=== PATIENT | female | born 1960 | race Caucasian/White ===

== ENCOUNTER 2023-11-18 22:13 | Inpatient (IN) | payer OTHER, SELFPAY ==
[2023-11-18 16:08] VITALS: BP 121/73
[2023-11-18 16:25] LABS: % Basophils 1.3 % (0-2); % Eosinophils 0.8 % (0-6); % Immature Granulocytes 0.2 % (0-0.5); % Lymphocytes 25.6 % (20.5-51.1); % Monocytes 11.5 % (1.7-9.3); % Neutrophils 60.6 % (42.2-75.2); Absolute Basophils 0.1 10^3/uL (0-0.2); Absolute Lymphocytes 1.2 10^3/uL (1.2-3.4); Absolute Monocytes 0.6 10^3/uL (0.1-0.6); Absolute Neutrophils 2.9 10^3/uL (1.4-6.5); Hematocrit 33.7 % (37.0-47.0); Hemoglobin 11.5 g/dL (12.0-16.0); Mean Corp Hgb Conc. 34.1 g/dL (33.0-37.0); Mean Corpuscular Hgb 28.9 pg (27.0-31.0); Mean Corpuscular Volume 84.7 fL (81.0-99.0); Mean Platelet Volume 9.3 fL (7.4-10.4); Nucleated Red Blood Cells % 0 %; Platelet Count 307 10^3/uL (130-400); Red Blood Cell Count 3.98 10^6/uL (4.20-5.40); Red Cell Dist. Width 12.9 % (11.5-14.5); White Blood Cell Count 4.8 10^3/uL (4.8-10.8)
[2023-11-18 16:46] LABS: ALT (SGPT) 14 U/L (0-35); AST (SGOT) 37 U/L (14-36); Alkaline Phosphatase 105 U/L (38-126); Blood Urea Nitrogen 17 mg/dl (7-17); Calcium 9.4 mg/dl (8.4-10.2); Carbon Dioxide 26 mmol/L (22-30); Chloride 106 mmol/L (98-107); Glucose 99 mg/dl (70-99); Potassium 4.2 mmol/L (3.5-5.1); Sodium 137 mmol/L (135-145); Total Bilirubin 0.3 mg/dl (0.2-1.3); Total Protein 7.5 g/dl (6.3-8.2); eGFR > 60.00
[2023-11-18 17:59] VITALS: BMI 18.7
[2023-11-18 18:05] VITALS: BP 118/80
[2023-11-18] MEDS: TYLENOL 650 MG PO (18:48)
[2023-11-18] MEDS: MAALOX 30 PO (18:48)
--- NOTE | 2023-11-18 21:02 | HPS.HSE ---
Family Physician
-
Family Physician: * NONE
Chief Complaint
History of Present Illness
63-year-old female who reports swelling to her left upper extremity yesterday. She was seen at an urgent care and sent to the ER for evaluation
She has past medical history of bipolar disorder, chronic pain, GERD, ADHD, osteopenia, DDD, scoliosis, Hx facial fracture 2008, alcohol abuse
Impression/plan:
Admit to telemetry
DVT left upper extremity
Bipolar disorder
ADHD
Chronic pain
GERD
Other PMH:
osteopenia
DDD
scoliosis
Hx facial fracture 2008
alcohol abuse
Medical History
Past Medical History
Past Medical History: Reports Other
Additional Past Medical History:
bipolar disorder
ADHD
chronic pain
GERD
osteopenia
DDD
scoliosis
Hx facial fracture 2008
alcohol abuse
Past Surgical History: Reports Other
Additional Past Surgical History:
Rhinoplasty
Bunionectomy right hallux
L4-L5 discectomy/fusion/screw placement
Breast augmentation 1992
Allergies / Home Medications
Allergies reflects when Allergies were last updated in [employer].
Home Medications with original date entered in [employer]
Physical Exam
Vital Signs
Vital Signs
Temp Pulse Resp BP Pulse Ox
98.1 F 102 18 118/80 98
11/18/23 16:08 11/18/23 18:05 11/18/23 18:05 11/18/23 18:05 11/18/23 18:05
Laboratory Results
-
11/18/23 16:20
11/18/23 16:20
Laboratory Results
Total Bilirubin 0.3 mg/dl (0.2-1.3) 11/18/23 16:20
AST 37 U/L (14-36) H 11/18/23 16:20
ALT 14 U/L (0-35) 11/18/23 16:20
Alkaline Phosphatase 105 U/L (38-126) 11/18/23 16:20
Impression/Plan
-
IMPRESSION:
PLAN:
--- NOTE | 2023-11-18 21:09 | ED.GENMED ---
History of Present Illness
General
Chief Complaint: Swelling
Source: patient
Exam Limitations: none
Time Seen by Provider: 11/18/23 17:45
Travel History
Have you had any contact with someone who has COVID-19?: No
Do you have any symptoms of coronavirus? Fever > 100 degrees, chills, cough, shortness of breath, sore throat, loss of taste or smell, muscle aches, or headache?: No
History of Present Illness
History of Present Illness:
Swelling to the left arm over 2 to 3 days. Has noted a hard lump the size of an apple in the left axilla for months. No chest pain shortness of breath no fever no trauma no other complaints
Past History
Past History
ED Past Medical History: GERD, Psychiatric (Adderal, ADHD, depression, chronic alcoholic), Other (Anemia ) and Other (chronic back pain)
ED Past Surgical History: Gynecological (Breast implants/exploratory laparotomy ) and Orthopedic (Had back surgery 2007 of my discs were removed and fused.' wrist surgery)
Social History
Tobacco: Former smoker
Alcohol: Daily (Vodka and wine)
Drug: None
Personal:
Living: alone
Employment: Not employed
Family History
Family History: Unable to obtain
Review of Systems
Review of Systems
All Other Systems: Not applicable
Constitutional: Denies fever
Respiratory: Reports no symptoms
Cardiac: Reports no symptoms
Phy Exam
Physical Exam
Physical Exam:
GENERAL: Alert and oriented in no apparent distress
EYE: Orbits normal.
NECK: Supple
CARDIAC: Regular rate and rhythm without any obvious murmurs.
LUNGS: Clear breath sounds,normal
ABDOMEN: Soft, without focal tenderness or distention
NEUROLOGICAL: Alert and oriented , grossly non-focal
SKIN: Warm and dry, diffuse erythema to the left arm.
MUSCULOSKELETAL: Significant left arm swelling. Good distal pulses and color. Old scars in the forearm. Swelling extends up to the shoulder. Axilla with hard tender lymph nodes.
PSYCH: Normal and appropriate interaction.
Scores
Heart Failure Risk
Heart Failure Risk Score: Not Applicable
Course
Orders/Labs/Results
Orders:
Orders
11/18/23 16:20
CMP [Comprehensive Metabolic Panel] Urgent
Complete Blood Count/With Diff Urgent
11/18/23 17:53
CXR2 [CR Chest - 2 Views ] Urgent
Comment:
Reason For Exam: left arm swelling
US Periph Venous UPPER Ext LT Urgent
Comment:
Reason For Exam: swelling
11/18/23 18:36
Acetaminophen [Tylenol] 650 mg PO NOW STA
Mag Hydrox/Al Hydrox/Simeth [Maalox] 30 ml Phenobarb/Hyoscy/Atropine/Scop [] 10 ml PO NOW
11/18/23 18:39
Mag Hydrox/Al Hydrox/Simeth [Maalox] 30 ml .ROUTE .STK-MED ONE
Phenobarb/Hyoscy/Atropine/Scop [] 10 ml .ROUTE .STK-MED ONE
11/18/23 21:05
PTT Urgent
Comment: Obtain baseline before beginning heparin infusion if not already collected
Heparin 4,200 units IV NOW STA
Pharmacy Request to Place See Dose Instructions PO NOW STA
Discontinue all Active Warfarin orders?: Yes
Nursing to Place Non Medication Order As Directed
Physician Order: PTT 6 hours after initial start of Heparin infusion
11/18/23 21:06
CT Neck With Iv Contrast Urgent
Comment:
Reason For Exam: extensive ue dvt
11/18/23 21:08
CT Chest Pe Study Urgent
Comment:
Reason For Exam: Extensive DVT upper extremity
11/18/23 21:15
Heparin 40659 Units/250 ml 25,000 units in 250 ml IV PER PROTOCOL
Weight to be used for heparin protocol in kilograms (kg):: 52.5
Protocol:: DVT/PE
PTT Goal Range to be used:: PTT 73 to 111 seconds
Order type:: Initial
INITIAL Infusion Dose (UNITS/KG/hr) & then follow protocol:: 18 units/kg/hr
Infusion Dose in UNITS/hr & then follow protocol (UNITS/hr):: 900
INFUSION RATE in mL/hr & then follow protocol (mL/hr):: 9
For DVT/PE algorithm, re-bolus for low PTT?: Yes
PTT less than or equal to 64 seconds:: Re-bolus 80 units/kg (max 10,000units). Increase by 200 units/hr
(+ 2mL/hr)
PTT 64.1 to 72.9 seconds:: Re-bolus 40 units/kg (max 5,000 units). Increase by 100 units/hr
(+ 1mL/hr)
PTT 73 to 111 seconds:: Target Range. No change in rate.
PTT 111.1 to 130.9 seconds:: Decrease rate by 100 units/hr (- 1 mL/hr)
PTT 131 to 199.9 seconds:: HOLD for 1 hr. Then decrease by 200 units/hr (- 2mL/hr)
PTT greater than or equal to 200 seconds:: HOLD for 2 hrs & Notify Provider. Then decrease by 200 units/hr
(- 2mL/hr)
Lab follow-up:: Each change, PTT q6h until 2 consecutive are therapeutic. Then
PTT daily.
11/18/23 22:[address] See Dose Instructions IV DIRECTED
Abnormal Lab Results
11/18/23
16:20
RBC 3.98 L 10^6/uL
(4.20-5.40)
Hgb 11.5 L g/dL
(12.0-16.0)
Hct 33.7 L %
(37.0-47.0)
Monocytes % 11.5 H %
(1.7-9.3)
AST 37 H U/L
(14-36)
11/18/23 16:20
11/18/23 16:20
Vital Signs
Initial and Last Documented VS:
Initial Vital Signs
Temp Pulse Resp BP Pulse Ox
98.1 F 108 18 121/73 98
11/18/23 16:08 11/18/23 16:08 11/18/23 16:08 11/18/23 16:08 11/18/23 16:08
Last Documented Vital Signs
Temp Pulse Resp BP Pulse Ox
98.1 F 102 18 118/80 98
11/18/23 16:08 11/18/23 18:05 11/18/23 18:05 11/18/23 18:05 11/18/23 18:05
MDM/Problems Addressed
Differential Diagnosis Includes:
Extensive DVT. Anticoagulation. CT scan ordered to evaluate progression into the chest and neck. Discussed with hospitalist
*Radiology
Radiology exam reviewed: radiology read reviewed (Extensive DVT left upper extremity)
*Pulse Oximetry
Patient hypoxic: no
*Critical Care Note
Total Time (30-74mins, 75-104mins- exclusive of procedures): Not Applicable
Data Reviewed
Review of Other/Old Records Reveals: Labs and Testing
Update Note
Update Note:
Extensive upper extremity DVT
ED Attending Note
-
Portions of this chart may have been created with voice recognition software.� Occasional wrong word or��sound alike� substitutions may have occurred due to the inherent limitations of voice recognition software.
Discharge Plan
Departure
Patient Disposition: Admit
Date of Disposition: 11/18/23
Time of Disposition: 21:09
Presentation/result/management discussed w/ accepting MD/DO: Hospitalist
Discharge Problem:
Extensive DVT left upper extremity
Prescriptions:
No Action
No Current Medications
0
Referrals:
NONE,* [Family Provider] -
Interventions
Interventions:
*Risk Screen - Suicide Last Done: 11/18/23 18:00
*General Assessment Last Done: 11/18/23 16:08
*Neglect/Abuse Screening Last Done: 11/18/23 18:00
ED- Fall Risk Assessment Last Done: 11/18/23 18:08
*ED COVID-19 Vaccine History Last Done: 11/18/23 16:08
ED- Cardiac Assessment Last Done: 11/18/23 18:08
ED- Pulmonary Assessment Last Done: 11/18/23 18:08
ED-Skin Assessment Last Done: 11/18/23 18:08
--- NOTE | 2023-11-18 21:36 | HPS.HSE ---
Addendum entered and electronically signed by Rosendo Duncan MD 11/18/23 22:05:
05/13/20 [facility] Digi Moo Scr Mammo W/cad
- No radiographic evidence of malignancy.
- Routine mammographic follow-up is recommended in one year.
Addendum entered and electronically signed by Rosendo Duncan MD 11/18/23 22:02:
I saw and examined the patient.
The DULITE MACHINE BLUER or PA's note was reviewed and I agree with the note.
Comment:
HPI
63F current smoker, HX b/l saline breast implant, last mamaogram was in 2007 , FHX of breast CA pw acute Lt UEx extensive swelling. Minimal discomfort but denied pain. She noted Lt axillary lump for 1 yrs.
Denied wt loss.
HX chr ambulatory dysfunction, use cane or walker.
HX Suboxone dependent chr LBP.
PHX
Chr back pain
GERD
chr ambulatory dysfunction
Former ETOH use disorder
Depression, ADHD
Breast implants
L4-5 discectomy , fusion and screws
Surgery for deviated nasal septum
Lt wrist surgery
SHX
Tobacco: Current smoker
Alcohol: Former ETOH use disorder - quit 3 yrs ago
Drug: None
Personal:
Living: alone
FHX : of breast CA
Reviewed VS: tachycardic @ low 100 BP 120/70 POx 98 on RA
PE
Gen: Not toxic, NAD , conversant
HEENT: anicteric
Neck: Firm lumpy nodes at Lt supraclavicular fossa, Lt axilla
Breast exam in the presence of DULITE MACHINE BLUER: Firm Lt breast , less mobile saline implant
Lungs: CTA
Cor: RRR S1 S2
Abdomen: soft NT NG NRT
ROLLED GLASS CROSSCUTTER: AAO3, NFND
MS: severe Lx kyphosis and deformity
Psych: Anxious
Data
WCC 4.8
Hgb 11.5
Unremarkable CMP
CXR: No convincing acute cardiopulmonary process. Soft tissue prominence in the left axillary region could reflect lymphadenopathy.
Lt UEx US: prelim reports extensive DVT. Enlaged Lt axillary LNs
Last hospitalist admission: Nil
ASSESSMENT & PLAN
Acute extensive occlusive DVT of Lt UEx - likely provoked
Lt supraclavicular and Lt axillary painless firm lumps suspect metastaic LAD DDX: Undiagnosed metastatic Breast CA
last mammogram was in 2007
FHx POS for Breast CA, Ovarian CA
- Await CTA of chest and CT Neck to eval extent of DVT and eval for any tumor
- Heparin gtt
- IR and Oncology consult
Chr back pain on chr Suboxone
chr ambulatory dysfunction: Use crutch , cane
- cont all OP pain Meds
Current smoker
Former ETOH use disorder - report sober for last 3yrs , confimed by daughter
- suggest cessation of smoking
DVT Px: on Heparin gtt
Full code
IP MS
Addendum entered and electronically signed by PAUL Reinoso 11/18/23 21:58:
Change to med rec
Suboxone 8/2mg sl tid not 8mg daily per PDMP
Original Note:
Family Physician
-
Family Physician: * NONE
Chief Complaint
-
Left upper extremity swelling, pain
History of Present Illness
63-year-old female who states she started with a left axilla lump approximately 1 year ago pea size which has expanded over the past year. She reports 2 days ago with swelling to her entire left upper extremity to lower hand that is painful and
tender. She reports she was at her sister's today when family noticed and advised her to come to the ER. She does have past medical history of bilateral breast augmentation with saline implants placed in front of the muscles in 1991. She
reports her last mammogram and pelvic ultrasound in 2007. She reports she stopped doing exams as she only wanted to think positive and did not want to wheel herself cancer. She has strong family history mother and sister of breast cancer,
paternal half sister of ovarian cancer paternal aunt of ovarian cancer. She is past medical history of chronic pain on chronic Suboxone, ADHD, bipolar disorder, anxiety, nicotine abuse, former alcohol abuse quit 13 years ago, cachexia,
GERD.
Medical History
Past Medical History
Past Medical History: Reports Other
Additional Past Medical History:
chronic pain on chronic Suboxone
ADHD
bipolar disorder
anxiety
nicotine abuse
former alcohol abuse quit 13 years ago
cachexia
GERD
Scoliosis secondary to thoracic kyphosis
Past Surgical History: Reports Other (Bilateral breast augmentation saline implants 1992,)
Additional Past Surgical History:
Bilateral breast implants 1992 saline
L4-L5 discectomy with plates, screws
Left wrist surgery x 3
Deviated septum repair
Exploratory lap for infertility
Social History
Tobacco: Smoker (1 pack/day)
Alcohol: Former (Stopped 13 years ago)
Drug: None
Personal: Single
Living: Alone
Employment: Disabled
Family History
Family History: Other (Mother and sister of breast cancer, paternal half sister of ovarian cancer, paternal aunt of ovarian cancer)
Allergies / Home Medications
Allergies reflects when Allergies were last updated in [employer].
Home Medications with original date entered in [employer]
Allergy/Medication List:
Allergies
Allergy/AdvReac Type Severity Reaction Status Date / Time
SSRI Allergy Unknown Uncoded 11/18/23 16:12
Home Medications
Suboxone 8 mg PO DAILY 11/18/23
dextroamphetamine-amphetamine ER 30 mg 24hr capsule,extend release (Adderall XR) 30 mg PO BID 11/18/23
lorazepam 0.5 mg tablet (Ativan) 0.5 mg PO DAILY PRN anxiety 11/18/23
pantoprazole 40 mg tablet,delayed release (Protonix) 40 mg PO DAILY 11/18/23
Review of Systems
-
History Source: Patient and Family (Daughter at bedside)
A 12 point ROS was completed and negative except as noted: Yes
Constitutional: Denies Fever, Weight Gain, Weight Loss or Fatigue
EENT: Denies Sore Throat or Runny Nose
Respiratory: Denies Cough or Trouble Breathing
Cardiac: Denies Chest Pain, Diaphoresis, Palpitations or Syncope
Abdomen/GI: Denies Abdominal Pain, Nausea, Vomiting, Diarrhea, Constipated or Bloody Stools
: Denies Dysuria
Musculoskeletal: Reports Edema (Entire left upper extremity until left axilla with erythema lymphadenopathy axilla supraclavicular, anterior cervical chain); Denies Joint Pain
Skin: Denies Itching or Rash
Neurological: Denies Dizzy, Headache or Weakness
Endocrine: Reports No Symptoms
Hematologic/Lymphatic: Reports No Symptoms
Psych: Reports Anxiety
Physical Exam
Vital Signs
Vital Signs
Temp Pulse Resp BP Pulse Ox
98.1 F 102 18 118/80 98
11/18/23 16:08 11/18/23 18:05 11/18/23 18:05 11/18/23 18:05 11/18/23 18:05
Physical Exam
Respiratory: Clear; No Wheezes, Rales or Rhonchi
Cardiac: S1/S2 and Regular Rhythm; No Murmur, Rub, Gallop or Peripheral Edema
Breast: Other (Bilateral breast implants in front of breast tissue hardened with stone pebble-like borders, left breast with swelling into axilla and multiple hard masses palpated)
GI: Soft, Non Tender, Non Distended, Normal Bowel Sounds and No Hepatosplenomegaly
Rectal: Deferred by Provider
Genito-urinary: Deferred by me
Musculoskeletal: No Clubbing, No Cyanosis and Edema, Left Upper Extremity (Entire left upper extremity until left axilla with erythema lymphadenopathy axilla supraclavicular, anterior cervical chain); No Edema, Right Upper Extremity, Edema, Left
Lower Extremity or Edema, Right Lower Extremity
Skin: Warm and Dry; No Rash
Neuro: AO x 3, No Motor Deficits, Nonfocal/grossly intact, Cranial Nerves Intact and No Sensory Deficits; No Slurred Speech, Facial Droop or Tremors
Psych: Anxious
Laboratory Results
-
11/18/23 16:20
11/18/23 16:20
Laboratory Results
Total Bilirubin 0.3 mg/dl (0.2-1.3) 11/18/23 16:20
AST 37 U/L (14-36) H 11/18/23 16:20
ALT 14 U/L (0-35) 11/18/23 16:20
Alkaline Phosphatase 105 U/L (38-126) 11/18/23 16:20
Impression/Plan
-
Impression/plan:
Admit to MedSurg
#Left upper extremity DVT with adenopathy concerning for underlying Breast cancer
-Check CT PE study/CT neck
-Iv heparin GTT
-consult IR
- consult ONC
#Chronic pain on chronic Suboxone
-Continue Suboxone 8 mg daily
#ADHD
Patient on Adderall 30 mg twice daily
#Bipolar disorder
#Anxiety
-Continue Ativan 0.5 mg daily as needed
#Nicotine abuse
1 pack/day
-Cessation advised
-Nicotine patch 21 mg
#Former alcohol abuse quit 13 years ago
#Cachexia 2/2 malnutrition�BMI 18.7 kg
-Consult dietary
#GERD
-Continue Protonix 40 mg daily
#Scoliosis secondary to thoracic kyphosis
#Chronic ambulatory dysfunction secondary to above
Patient uses cane to walk
FUll code
[2023-11-18 21:50] VITALS: BP 128/85
[2023-11-18] MEDS: HEPARIN 4200 UNITS IV (21:51)
[2023-11-18 22:11] LABS: APTT 33.5 Sec (23.4-35.0)
[2023-11-18] MEDS: HEPARIN 25000 UNITS/250 ML IV (22:23)
[2023-11-19] VITALS: BP 97/65
[2023-11-19 00:02] VITALS: BP 97/65
[2023-11-19 00:15] VITALS: BP 111/67
[2023-11-19 00:24] VITALS: BMI 17.5
--- NOTE | 2023-11-19 00:30 | W.PN.UPDATE ---
Update Note
Progress Note Update
CT neck and CTA chest with IV contrast
- Extensive LAD/ mass lesions Lt SCL, axiliary, upper chest measuring up to 13 cm concerning for neoplastic process.
- Lobulated mass at Lt breast.
- No central and lobar PE.
[2023-11-19] MEDS: SUBUTEX 8 MG SL ×4 (00:51→21:32)
--- NOTE | 2023-11-19 01:50 | PTCARENOTE ---
Pt. arrived from ED via stretcher. Pt. ambulated into room 337-2 with staff assistance and one crutch. Pt. reports that she only uses one crutch at home to ambulate. Pt. AAOx3, anxious, fast speech. Heparin gtt running @ 9 mL/hr when pt. arrived to
floor. Pt. able to answer all questions appropriately. Oriented to unit. Call wick within reach. Plan of care ongoing.
[2023-11-19 05:21] LABS: % Basophils 0.9 % (0-2); % Eosinophils 3.5 % (0-6); % Immature Granulocytes 0.3 % (0-0.5); % Lymphocytes 44.5 % (20.5-51.1); % Neutrophils 35.8 % (42.2-75.2); Absolute Eosinophils 0.1 10^3/uL (0-0.7); Absolute Lymphocytes 1.5 10^3/uL (1.2-3.4); Absolute Monocytes 0.5 10^3/uL (0.1-0.6); Absolute Neutrophils 1.2 10^3/uL (1.4-6.5); Hematocrit 33.1 % (37.0-47.0); Hemoglobin 11.4 g/dL (12.0-16.0); Mean Corp Hgb Conc. 34.4 g/dL (33.0-37.0); Mean Corpuscular Hgb 28.9 pg (27.0-31.0); Mean Platelet Volume 9.4 fL (7.4-10.4); Nucleated Red Blood Cells % 0 %; Platelet Count 232 10^3/uL (130-400); Red Blood Cell Count 3.94 10^6/uL (4.20-5.40); Red Cell Dist. Width 12.8 % (11.5-14.5); White Blood Cell Count 3.5 10^3/uL (4.8-10.8)
[2023-11-19 05:36] LABS: APTT 128.1 Sec (23.4-35.0)
[2023-11-19 05:43] LABS: ALT (SGPT) 12 U/L (0-35); AST (SGOT) 35 U/L (14-36); Albumin 3.4 g/dl (3.5-5.0); Alkaline Phosphatase 101 U/L (38-126); Blood Urea Nitrogen 18 mg/dl (7-17); Calcium 8.8 mg/dl (8.4-10.2); Carbon Dioxide 25 mmol/L (22-30); Chloride 106 mmol/L (98-107); Estimated Creatinine Clearance 62 ml/min; Glucose 88 mg/dl (70-99); Potassium 4.6 mmol/L (3.5-5.1); Sodium 135 mmol/L (135-145); Total Bilirubin 0.5 mg/dl (0.2-1.3); Total Protein 6.8 g/dl (6.3-8.2); eGFR > 60.00
[2023-11-19 07:00] VITALS: BP 119/65
[2023-11-19] MEDS: NICODERM TRANSDERMAL 21 MG TRANSDERM (08:50)
[2023-11-19] MEDS: PROTONIX 40 MG PO (08:51)
--- NOTE | 2023-11-19 12:09 | W.PN.HOSP.TC ---
Addendum entered and electronically signed by Jesus Hawley MD 11/19/23 14:24:
Discussed with IR and they will be able to do biopsy tomorrow
Original Note:
Today's Communication/Plan
-
Monitor vitals
See plan
Continue with heparin drip
Awaiting oncology to see
IR consulted
Daughter updated over the phone
Assessment / Plan
Assessment / Plan
General: No acute distress
HEENT: anicteric
Respiratory: Clear; No Wheezes
Cardiac: S1/S2 and Regular Rhythm
Breast: Other (Bilateral breast implants in front of breast tissue hardened with stone pebble-like borders)
GI: Soft, Non Tender, Non Distended
Musculoskeletal: Edema, Left Upper Extremity edema
Neuro: AO x 3, No Motor Deficits
Acute Left upper extremity DVT with adenopathy concerning for underlying Breast cancer
-CT chest without pulmonary embolus, extensive adenopathy in the left axilla/subclavian region versus anterolateral chest wall mass versus intramuscular lesion. Mild emphysematous disease
Strong family history of breast and ovarian cancer
Neck CT with extensive lymphadenopathy
-cw Iv heparin GTT
-consulted IR
- consulted ONC; if feels need to involve dr Navarro then will consult
Mammogram 05/13/20: No radiographic evidence of malignancy
#Chronic pain on chronic Suboxone
-Continue Suboxone 8 mg daily
#ADHD
Patient on Adderall 30 mg twice daily
#Bipolar disorder
#Anxiety
-Continue Ativan 0.5 mg daily as needed
#Nicotine abuse
1 pack/day
-Cessation advised
-Nicotine patch 21 mg
#Former alcohol abuse quit 13 years ago
#Cachexia 2/2 suspected severe protein calorie malnutrition�BMI 18.7 kg
-Consult dietary
�#GERD
-Continue Protonix 40 mg daily
#Scoliosis secondary to thoracic kyphosis
#Chronic ambulatory dysfunction secondary to above
Patient uses cane to walk
FUll code
Anticipated Discharge: > 48 hours
Subjective/Interval History
-
Date of Service: November 19, 2023
denies pain
Objective Data
-
Labs:
Laboratory Results
11/19/23 11/19/23
05:09 12:09
WBC 3.5 L
Hgb 11.4 L
Hct 33.1 L
Plt Count 232 D
APTT 128.1 H Pending
Sodium 135
Potassium 4.6
Chloride 106
Carbon Dioxide 25
BUN 18 H
Creatinine 0.7
Glucose 88
Calcium 8.8
Total Bilirubin 0.5
AST 35
ALT 12
Alkaline Phosphatase 101
Vital Signs:
Vital Signs
Temp Pulse Resp BP Pulse Ox
97.6 F 74 18 119/65 97
11/19/23 07:00 11/19/23 07:00 11/19/23 07:00 11/19/23 07:00 11/19/23 07:00
I&O
11/18/23 11/19/23 11/20/23
06:59 06:59 06:59
Intake Total 360 / 360
Balance 360 / 360
[2023-11-19 12:30] LABS: APTT 82.1 Sec (23.4-35.0)
--- NOTE | 2023-11-19 14:42 | CM ---
Reviewed chart, met with patient and her daughter who was at bedside to obtain information for assessment. Patient stated that she lives alone in a multi-story house with a first floor set up. Patient stated that she is making her shower a walk in
as well.
Patient described herself as independent with her ADLs, self care and uses a cane to assist with her ambulation. Her daughter does help her sometimes with her personal care if she is having a bad day as she has a lot of orthopedic concerns. She
stated that she keeps a cell phone with her at all times in the event that she falls.
Her daughter assists with the burning plant operator, cooking, cleaning and laundry.
She has never had VN services nor has she been to a SNF.
Patient has a prescription plan and uses [facility] [address] for all of her medications.
Patient stated that she feels she will have no needs at time of discharge as her daughter is with her an acts as a cg for whatever she needs. She was more concerned about the course of her hospitalization.
Plan: Case management will continue to follow and assist with discharge planning. Patient will return home with the support of her daughter.
[2023-11-19 15:00] VITALS: BP 118/76
[2023-11-19 15:32] VITALS: BMI 17.5
--- NOTE | 2023-11-19 15:54 | CON.ONC ---
Impression
Impression
clinically locally advanced adenopathy lymphoma versus breast carcinoma
Plan
Plan
with indolent lymphoma as well as a low-grade hormone receptor positive breast carcinoma would present with similar findings; maintaining IV heparin for occlusive PTE therapy was transitioned to NOAC following biopsy of choice by IR for multiple
lesions easily palpable. We'll follow-up
Patient History
History of Present Illness
63-year-old white female we are asked to evaluate for an progressive left upper extremity swelling with a 2 year plus history of palpable breast mass/supraclavicular adenopathy. The patient noticed that she does not see her primary care physician
on a regular basis. She noted the abnormalities described progressing but it has been in the last week when she was unable to close her hand without pain due to tightness from edema that she opted to come to the emergency room for evaluation. She
was asking to be discharged today however encouraged her to stay in the hospital to continue with IV heparin therapy for biopsy of the lesions noted to formulate a plan of treatment on the outpatient basis.
Past-Medical/Surgical History
GERD; depression; DHD; chronic low back pain; bilateral breast implants; herniated disc repair
Patient Medication
Medication Instructions Recorded Confirmed Last Taken Type
buprenorphine 8 mg-naloxone 2 mg 1 film sublingual TID substance 11/18/23 11/18/23 11/18/23 09:00 History
sublingual film (Suboxone) use disorder
dextroamphetamine-amphetamine ER 30 mg PO BID ADHD 11/18/23 11/18/23 Unknown History
30 mg 24hr capsule,extend release
(Adderall XR)
lorazepam 0.5 mg tablet (Ativan) 0.5 mg PO DAILY PRN anxiety 11/18/23 11/18/23 Unknown History
pantoprazole 40 mg tablet,delayed 40 mg PO DAILY Gastrointestinal 11/18/23 11/18/23 Unknown History
release (Protonix) Issue
Active Medications
Generic Name Dose Route Start Last Admin
Trade Name Freq PRN Reason Stop Dose Admin
Acetaminophen 650 mg 11/19/23 00:14
Acetaminophen 325 Mg Tablet PO 12/17/23 00:13
Q4HPRN PRN
mild pain/ROTHMAN/temp> 100.4F
Buprenorphine 8 mg 11/19/23 00:14 11/19/23 08:51
Buprenorphine 8 Mg Sl Tablet SL 12/17/23 00:13 8 mg
TID ESTEFANÍA Administration
Heparin Sodium 4,200 units 11/18/23 22:09
Heparin 80 Units/Kg Rebolus-Do Not Discard IV 12/16/23 22:08
PRN PRN
PTT < OR = 64 seconds
Heparin Sodium 2,100 units 11/18/23 22:10
Heparin 40 Units/Kg Rebolus-Do Not Discard IV 12/16/23 22:09
PRN PRN
PTT = 64.1 to 72.9 seconds
Heparin Sodium 25,000 units in 250 mls @ 0 mls/hr 11/18/23 21:15 11/18/23 22:23
Heparin 17369 Units/250 Ml IV 250 mls
PER PROTOCOL ESTEFANÍA Administration
Protocol
Per Protocol
Lorazepam 0.5 mg 11/19/23 00:14
Lorazepam 0.5 Mg Tablet PO 12/17/23 00:13
DAILY PRN
anxiety
Nicotine 21 mg 11/19/23 08:00 11/19/23 08:50
Nicotine 21 Mg Patch TRANSDERM 12/17/23 07:59 21 mg
DAILY ESTEFANÍA Administration
Dextroamphetamine- 0 mg 11/19/23 08:00
Amphetamine [ PO 12/17/23 07:59
Adderall Xr] 30 Mg BID ESTEFANÍA
Capsule,Ext Po Bid
Pantoprazole Sodium 40 mg 11/19/23 08:00 11/19/23 08:51
Pantoprazole 40 Mg Delayed Release Tablet PO 12/17/23 07:59 40 mg
DAILY ESTEFANÍA Administration
Sodium Chloride 0 flush 11/18/23 23:00
Sodium Chloride 0.9% (Flush) Syringe IV 12/16/23 22:59
PER PROTOCOL ESTEFANÍA
Review of Systems
-
History Source: Patient
All Other Systems: Reviewed and Negative (other than as per HPI)
Physical Exam
-
General: Cachetic
HEENT: Moist Mucous Membranes
Cardiology: Normal Sinus Rhythm
Pulmonary: Clear
GI: Soft and Normal Bowel Sounds
Musculoskeletal: Edema. Left Upper Extrem
Hematologic / Lymphatic: Lymphadenopathy (consistent with lymphadenopathy of the subpectoral left chest wall with left axillary adenopathy as well as multiple supraclavicular and lower cervical lymph nodes)
Labs
Lab Results
WBC 3.5 10^3/uL (4.8-10.8) L 11/19/23 05:09
RBC 3.94 10^6/uL (4.20-5.40) L 11/19/23 05:09
Hgb 11.4 g/dL (12.0-16.0) L 11/19/23 05:09
Hct 33.1 % (37.0-47.0) L 11/19/23 05:09
MCV 84.0 fL (81.0-99.0) 11/19/23 05:09
MCH 28.9 pg (27.0-31.0) 11/19/23 05:09
MCHC 34.4 g/dL (33.0-37.0) 11/19/23 05:09
RDW 12.8 % (11.5-14.5) 11/19/23 05:09
Plt Count 232 10^3/uL (130-400) D 11/19/23 05:09
MPV 9.4 fL (7.4-10.4) 11/19/23 05:09
Abs Immat Gran (auto) 0.0 10^3/uL (0-0.05) 11/19/23 05:09
Absolute Neuts (auto) 1.2 10^3/uL (1.4-6.5) L 11/19/23 05:09
Absolute Lymphs (auto) 1.5 10^3/uL (1.2-3.4) 11/19/23 05:09
Absolute Monos (auto) 0.5 10^3/uL (0.1-0.6) 11/19/23 05:09
Absolute Eos (auto) 0.1 10^3/uL (0-0.7) 11/19/23 05:09
Absolute Basos (auto) 0.0 10^3/uL (0-0.2) 11/19/23 05:09
Immature Gran % 0.3 % (0-0.5) 11/19/23 05:09
Neutrophils % 35.8 % (42.2-75.2) L 11/19/23 05:09
Lymphocytes % 44.5 % (20.5-51.1) 11/19/23 05:09
Monocytes % 15.0 % (1.7-9.3) H 11/19/23 05:09
Eosinophils % 3.5 % (0-6) 11/19/23 05:09
Basophils % 0.9 % (0-2) 11/19/23 05:09
Creatinine 0.7 mg/dL (0.6-1.0) 11/19/23 05:09
Vital Signs
Vital Signs
Temp Pulse Resp BP Pulse Ox
98.2 F 76 18 118/76 98
11/19/23 15:00 11/19/23 15:00 11/19/23 15:00 11/19/23 15:00 11/19/23 15:00
[2023-11-19 19:24] LABS: APTT 42.9 Sec (23.4-35.0)
[2023-11-19] MEDS: HEPARIN 4200 UNITS IV (19:56)
[2023-11-19] MEDS: HEPARIN 25000 UNITS/250 ML IV (19:56)
[2023-11-20] VITALS (13 sets, daily range): BP systolic 86–135; BP diastolic 71–93
[2023-11-20 01:54] LABS: % Basophils 1.4 % (0-2); % Eosinophils 2.4 % (0-6); % Immature Granulocytes 0.2 % (0-0.5); % Lymphocytes 32.9 % (20.5-51.1); % Monocytes 11.6 % (1.7-9.3); % Neutrophils 51.5 % (42.2-75.2); Absolute Basophils 0.1 10^3/uL (0-0.2); Absolute Eosinophils 0.1 10^3/uL (0-0.7); Absolute Lymphocytes 1.6 10^3/uL (1.2-3.4); Absolute Monocytes 0.6 10^3/uL (0.1-0.6); Absolute Neutrophils 2.6 10^3/uL (1.4-6.5); Hematocrit 34.9 % (37.0-47.0); Mean Corp Hgb Conc. 34.4 g/dL (33.0-37.0); Mean Corpuscular Volume 84.3 fL (81.0-99.0); Mean Platelet Volume 10.9 fL (7.4-10.4); Nucleated Red Blood Cells % 0 %; Platelet Count 219 10^3/uL (130-400); Red Blood Cell Count 4.14 10^6/uL (4.20-5.40); Red Cell Dist. Width 12.7 % (11.5-14.5)
[2023-11-20 02:21] LABS: APTT 190.6 Sec (23.4-35.0)
[2023-11-20 02:26] LABS: ALT (SGPT) 13 U/L (0-35); AST (SGOT) 33 U/L (14-36); Albumin 3.6 g/dl (3.5-5.0); Alkaline Phosphatase 104 U/L (38-126); Blood Urea Nitrogen 16 mg/dl (7-17); Calcium 8.6 mg/dl (8.4-10.2); Carbon Dioxide 27 mmol/L (22-30); Chloride 105 mmol/L (98-107); Estimated Creatinine Clearance 73 ml/min; Glucose 94 mg/dl (70-99); Potassium 4.2 mmol/L (3.5-5.1); Sodium 135 mmol/L (135-145); Total Bilirubin 0.5 mg/dl (0.2-1.3); eGFR > 60.00
[2023-11-20] MEDS: PROTONIX 40 MG PO (08:45)
[2023-11-20] MEDS: SUBUTEX 8 MG SL ×3 (08:45→22:00)
[2023-11-20] MEDS: NICODERM TRANSDERMAL 21 MG TRANSDERM (08:48)
--- NOTE | 2023-11-20 09:35 | W.PN.ONC2 ---
Today's Communication / Plan
-
- LN bx with IR today.
- transition to DOAC after bx.
- outpt oncology follow up for path review, ongoing management.
Impression
Impression
clinically locally advanced adenopathy lymphoma versus breast carcinoma
Plan
Plan
1. Left subclavian, Axillary, supraclavicular adenopathy: DDX lymphoma vs. breast primary highest on differential. IR bx scheduled for today. will arrange close oncology follow-up to review path results and for ongoing management of suspected
malignancy.
2. LUE DVT: maintaining IV heparin for occlusive LUE DVT. plan to transition to DOAC after IR bx today.
Subjective/Objective
Chief Complaint
adenopathy, LUE DVT
Subjective
pt has no new complaints today. She notes improvement in LUE swelling. Denies fevers, chills.
Vital Signs:
Vital Signs
Temp Pulse Resp BP Pulse Ox
97.5 F 85 16 124/77 99
11/20/23 07:00 11/20/23 07:00 11/20/23 07:00 11/20/23 07:00 11/20/23 07:00
Lab Results:
Laboratory Data
WBC 5.0 10^3/uL (4.8-10.8) 11/20/23 01:40
Hgb 12.0 g/dL (12.0-16.0) 11/20/23 01:40
Plt Count 219 10^3/uL (130-400) 11/20/23 01:40
APTT 190.6 Sec (23.4-35.0) H* 11/20/23 01:40
eGFR > 60.00 11/20/23 01:40
Physical Exam
HEENT: No Jaundice
Pulmonary: Clear
Extremities: Edema (LUE. palpable left axillary adenopathy, tender to palpation. )
Neuro: Non Focal
Review of Systems
Review of Systems
Constitutional: Denies Fever
Respiratory: Denies Dyspnea
Cardiovascular: Denies Chest Pain
Neurological: Denies Headache
Hem/Lymphatic: Reports Swollen Glands; Denies Night Sweats
[2023-11-20 09:38] LABS: APTT 54.8 Sec (23.4-35.0)
--- NOTE | 2023-11-20 10:32 | W.PN.HOSP.TC ---
Today's Communication/Plan
-
see bold
Assessment / Plan
Assessment / Plan
Gen: NAD, AAOx3, appears chronically ill and malnourished.
Eyes: EOMI, PERRLA, no scleral icterus.
Neck: supple.
CV: RRR, +S1/S2, no m/r/g.
Resp: CTAB, no rales, wheezes, or rhonchi.
Abd: +BS, soft, NT, ND
Skin: No rashes. 3+ LUE edema
Neuro: CN 2-12 intact, non-focal.
Psych: Normal mood and affect.
Acute Left upper extremity DVT with adenopathy concerning for underlying Breast cancer
-CT chest without pulmonary embolus, extensive adenopathy in the left axilla/subclavian region versus anterolateral chest wall mass versus intramuscular lesion. Mild emphysematous disease
Strong family history of breast and ovarian cancer
Neck CT with extensive lymphadenopathy
-cont heparin gtt
-IR to Bx, ONC following
Mammogram 05/13/20: No radiographic evidence of malignancy
#Chronic pain on chronic Suboxone
-Continue Suboxone 8 mg daily
#ADHD
Patient on Adderall 30 mg twice daily
#Bipolar disorder
#Anxiety
-Continue Ativan 0.5 mg daily as needed
#Nicotine abuse
1 pack/day
-Cessation advised
-Nicotine patch 21 mg
#Former alcohol abuse quit 13 years ago
#Cachexia 2/2 suspected severe protein calorie malnutrition�BMI 18.7 kg
-Consult dietary
�#GERD
-Continue Protonix 40 mg daily
#Scoliosis secondary to thoracic kyphosis
#Chronic ambulatory dysfunction secondary to above
Patient uses cane to walk
FULL/Heparin
Anticipated Discharge: Within 24 hours
Subjective/Interval History
-
Date of Service: November 20, 2023
Denies CP/SOB.
Objective Data
-
Labs:
Laboratory Results
11/20/23 11/20/23
01:40 09:16
WBC 5.0
Hgb 12.0
Hct 34.9 L
Plt Count 219
APTT 190.6 H* 54.8 H
Sodium 135
Potassium 4.2
Chloride 105
Carbon Dioxide 27
BUN 16
Creatinine 0.6
Glucose 94
Calcium 8.6
Total Bilirubin 0.5
AST 33
ALT 13
Alkaline Phosphatase 104
Vital Signs:
Vital Signs
Temp Pulse Resp BP Pulse Ox
97.5 F 85 16 124/77 99
11/20/23 07:00 11/20/23 07:00 11/20/23 07:00 11/20/23 07:00 11/20/23 07:00
I&O
11/19/23 11/20/23 11/21/23
06:59 06:59 06:59
Intake Total 1500 / 1500
Balance 1500 / 1500
[2023-11-21 01:32] LABS: % Basophils 1.1 % (0-2); % Eosinophils 2.9 % (0-6); % Immature Granulocytes 0.2 % (0-0.5); % Lymphocytes 30.2 % (20.5-51.1); % Monocytes 15.6 % (1.7-9.3); Absolute Basophils 0.1 10^3/uL (0-0.2); Absolute Eosinophils 0.1 10^3/uL (0-0.7); Absolute Lymphocytes 1.3 10^3/uL (1.2-3.4); Absolute Monocytes 0.7 10^3/uL (0.1-0.6); Absolute Neutrophils 2.2 10^3/uL (1.4-6.5); Hemoglobin 11.4 g/dL (12.0-16.0); Mean Corp Hgb Conc. 32.6 g/dL (33.0-37.0); Mean Corpuscular Hgb 28.4 pg (27.0-31.0); Mean Corpuscular Volume 87.3 fL (81.0-99.0); Mean Platelet Volume 9.6 fL (7.4-10.4); Nucleated Red Blood Cells % 0 %; Platelet Count 263 10^3/uL (130-400); Red Blood Cell Count 4.01 10^6/uL (4.20-5.40); Red Cell Dist. Width 12.9 % (11.5-14.5); White Blood Cell Count 4.4 10^3/uL (4.8-10.8)
[2023-11-21 01:45] LABS: APTT 57.6 Sec (23.4-35.0)
[2023-11-21] MEDS: HEPARIN 4200 UNITS IV (02:02)
[2023-11-21 02:03] LABS: ALT (SGPT) 12 U/L (0-35); AST (SGOT) 25 U/L (14-36); Albumin 3.5 g/dl (3.5-5.0); Alkaline Phosphatase 106 U/L (38-126); Blood Urea Nitrogen 17 mg/dl (7-17); Calcium 8.7 mg/dl (8.4-10.2); Carbon Dioxide 26 mmol/L (22-30); Chloride 107 mmol/L (98-107); Estimated Creatinine Clearance 73 ml/min; Glucose 107 mg/dl (70-99); Potassium 4.1 mmol/L (3.5-5.1); Sodium 136 mmol/L (135-145); Total Bilirubin 0.2 mg/dl (0.2-1.3); Total Protein 6.8 g/dl (6.3-8.2); eGFR > 60.00
[2023-11-21 07:34] VITALS: BP 111/55
[2023-11-21] MEDS: NICODERM TRANSDERMAL 21 MG TRANSDERM (07:41)
[2023-11-21] MEDS: SUBUTEX 8 MG SL ×2 (07:41→16:48)
[2023-11-21] MEDS: PROTONIX 40 MG PO (07:41)
[2023-11-21 09:11] LABS: APTT 141.9 Sec (23.4-35.0)
--- NOTE | 2023-11-21 09:42 | CM ---
Addendum entered by Mckayla Newman 11/21/23 12:10:
CM reviewed chart and anticipate dc later today
Bedside meeting with pt to review dc planning
Plan for home with [facility]
IMM verbally reviewed-copy provided
Pt will take an Uber home
Update to [facility] via [facility]
VN order on chart
Discharge Disposition- home with [facility] VN via [employer]
Fax0
Original Note:
CM consulted for Eliquis pricing
Call with [employer] [phone]
Per automatic system, no coverage
However call later with rep and noted full coverage, $0/copay
Rep ran pricing 3x to ensure correct pricing
Update to Dr. Hawley/TT
--- NOTE | 2023-11-21 10:43 | W.PN.HOSP.TC ---
Addendum entered and electronically signed by Jesus Hawley MD 11/21/23 14:47:
Spoke with oncology and they are okay with patient going home with outpatient follow-up. Confirmed with case managers that Eliquis is covered. PT/OT rec home
Daughter updated over the phone. Daughter aware that patient needs to follow-up closely outpatient
Time of discharge 38 minutes
Original Note:
Today's Communication/Plan
-
Monitor vital signs see plan
Transition to Eliquis
Possible discharge today if okay with oncology
Assessment / Plan
Assessment / Plan
Gen: NAD, AAOx3, appears chronically ill and malnourished.
Eyes: EOMI, PERRLA, no scleral icterus.
Neck: supple.
CV: RRR, +S1/S2, no m/r/g.
Resp: CTAB, no rales, wheezes, or rhonchi.
Abd: +BS, soft, NT, ND
Skin: No rashes. 3+ LUE edema
Neuro: CN 2-12 intact, non-focal.
Psych: Normal mood and affect.
Acute Left upper extremity DVT with adenopathy concerning for underlying Breast cancer
-CT chest without pulmonary embolus, extensive adenopathy in the left axilla/subclavian region versus anterolateral chest wall mass versus intramuscular lesion. Mild emphysematous disease
Strong family history of breast and ovarian cancer
Neck CT with extensive lymphadenopathy
-cont heparin gtt; transition to eliquis; confirmed with case managers that eliquis is covered
-Status post IR guided left axillary mass biopsy, pathology pending; ONC following, likely oncology follow-up outpatient for biopsy
Mammogram 05/13/20: No radiographic evidence of malignancy
#Chronic pain on chronic Suboxone
-Continue Suboxone 8 mg daily
#ADHD
Patient on Adderall 30 mg twice daily
#Bipolar disorder
#Anxiety
-Continue Ativan 0.5 mg daily as needed
#Nicotine abuse
1 pack/day
-Cessation advised
-Nicotine patch 21 mg
#Former alcohol abuse quit 13 years ago
#Cachexia 2/2 suspected severe protein calorie malnutrition�BMI 18.7 kg
-Consult dietary
�#GERD
-Continue Protonix 40 mg daily
#Scoliosis secondary to thoracic kyphosis
#Chronic ambulatory dysfunction secondary to above
Patient uses cane to walk
FULL/Eliquis
Anticipated Discharge: Today
Subjective/Interval History
-
Date of Service: November 21, 2023
denies pain
Objective Data
-
Labs:
Laboratory Results
11/21/23 11/21/23 11/21/23
01:21 08:35 16:00
WBC 4.4 L
Hgb 11.4 L
Hct 35.0 L
Plt Count 263 D
APTT 57.6 H 141.9 H Pending
Sodium 136
Potassium 4.1
Chloride 107
Carbon Dioxide 26
BUN 17
Creatinine 0.6
Glucose 107 H
Calcium 8.7
Total Bilirubin 0.2
AST 25
ALT 12
Alkaline Phosphatase 106
Vital Signs:
Vital Signs
Temp Pulse Resp BP Pulse Ox
97.6 F 91 18 111/55 94
11/21/23 07:34 11/21/23 07:34 11/21/23 07:34 11/21/23 07:34 11/21/23 07:34
I&O
11/20/23 11/21/23 11/22/23
06:59 06:59 06:59
Intake Total 1500 / 1500 960 / 960
Balance 1500 / 1500 960 / 960
[2023-11-21] MEDS: ELIQUIS 10 MG PO (11:52)
[2023-11-21 12:00] VITALS: BP 116/81; PULSE 101; O2SAT 96
[2023-11-21 12:40] VITALS: BP 116/81; PULSE 109; O2SAT 95
--- NOTE | 2023-11-21 14:46 | W.DCSUMMARY ---
Discharge Summary
Discharge Data
Date of Admission: 11/18/23
Date of Discharge: 11/21/23
-
Pending Results: Yes
Hospital Course
63-year-old female with past medical history of bipolar disorder, ADHD, chronic pain, smoking, GERD, scoliosis, ambulatory dysfunction came to the hospital with acute left upper extremity DVT. On admission patient also was found to have significant
left subclavian, axillary and supraclavicular adenopathy. Patient was seen by oncology throughout hospitalization. It was determined that patient could likely have lymphoma or primary breast malignancy. Patient underwent left axillary mass biopsy
by interventional radiology. Patient biopsy results were still pending prior to discharge however patient was instructed to follow-up with oncology closely outpatient. This was also discussed with patient's daughter over the phone. For her left
upper extremity DVT patient was initially started on IV heparin which was later transitioned to Eliquis. On 11/21/2023 patient was discharged home with instructions to follow-up with all her physicians outpatient.
Discharge Plan
-
Patient Disposition: Home with Home Care
Discharge Diagnosis/Procedures: Left subclavian, axillary and supraclavicular adenopathy status post left axillary mass biopsy
Left upper extremity deep vein thrombosis
Diet: As tolerated
Activity: As tolerated
Driving Restrictions: As prior to admission
Bathing Restrictions: None
Activity Restrictions/Additional Instructions:
You need to go see your primary care provider within 1 week
If you do not receive a call from oncology office then please contact them for follow-up
You have a pending biopsy results
Referrals:
Lukas Jackson, DO [Active] - in less than 1 week
NONE,* [Family Provider] - in one to two weeks
Prescriptions:
New
nicotine 21 mg/24 hr Patch 24 Hour
21 mg transdermal DAILY Qty: 30 0RF
Eliquis 5 mg tablet
10 mg PO BID Qty: 60 0RF
Rx Instructions:
Take 10 mg twice daily until 11/27/23; started 11/27 take 5mg twice daily
Continued
lorazepam [Ativan] 0.5 mg Tablet
0.5 mg PO DAILY PRN (Reason: anxiety )
dextroamphetamine-amphetamine [Adderall XR] 30 mg Capsule,Extended Release 24hr
30 mg PO Daily
buprenorphine-naloxone [Suboxone] 8-2 mg Film
1 film sublingual TID
dextroamphetamine-amphetamine 30 mg tablet
30 mg PO BID@1200,1800
Rx Instructions:
First dose is around 12 noon and other dose is in the afternoon
pantoprazole [Protonix] 40 mg Tablet,Delayed Release (Dr/Ec)
40 mg PO DAILY Qty: 30 0RF
Discharge Orders:
Discharge Patient (As Directed); Ordered 11/21/23
Ordered By: Jesus Hawley
Discharge Date and Time
Discharge Date/Time: 11/21/23 18:30
[2023-11-21 15:28] VITALS: BP 115/75
[2023-11-21] MEDS: FLUZONE HIGH-DOSE QUAD 2023-24 0.699999999999999956 ML IM (16:09)
[2023-11-21] MEDS: PREVNAR 20 0.5 ML IM (16:11)
[2023-11-21 16:26] LABS: APTT 37.9 Sec (23.4-35.0)
== END 2023-11-21 18:30 | disposition home health service (06) | DRG 597 ==
LOC: 3 WEST ACU 22:13
PROVIDERS: Clinical Nurse Specialist Family Health; Internal Medicine; Radiology Vascular & Interventional Radiology; ADMITTING PHYSICIAN Internal Medicine; ATTENDING PHYSICIAN Internal Medicine; CONSULT PHYSICIAN Internal Medicine Hematology & Oncology; EMERGENCY PHYSICIAN Emergency Medicine
PROC: 0JBF3ZX Excision of Left Upper Arm Subcutaneous Tissue and Fascia, Percutaneous Approach, Diagnostic (ICD-10-PCS; 2023-11-20)
DX: C50.919 Malignant neoplasm of unspecified site of unspecified female breast (principal); E43 Unspecified severe protein-calorie malnutrition; I82.622 Acute embolism and thrombosis of deep veins of left upper extremity; Z68.1 Body mass index [BMI] 19.9 or less, adult; G89.29 Other chronic pain; F90.9 Attention-deficit hyperactivity disorder, unspecified type; F31.9 Bipolar disorder, unspecified; F41.9 Anxiety disorder, unspecified; E88.A Wasting disease (syndrome) due to underlying condition; K21.9 Gastro-esophageal reflux disease without esophagitis; M41.9 Scoliosis, unspecified
CPT/HCPCS: 88305; 20206; 70491; 71046; 71275; 76942; 80053; 85025; 85730; 88333; 88334; 88341; 88342; 88360; 90662; 90677; 93971; 96365; 96366; 97116; 97163; 97167; 97535; 99152; 99153; 99285; 99406; G0008; G0009; Q9967

== ENCOUNTER → 2023-12-05 10:39 | Outpatient (REF) | payer OTHER, SELFPAY | LOC: WDC 10:39 | PROVIDERS: ATTENDING PHYSICIAN Student in an Organized Health Care Education/Training Program | DX: C50.912 Malignant neoplasm of unspecified site of left female breast (principal); R59.9 Enlarged lymph nodes, unspecified; Z85.3 Personal history of malignant neoplasm of breast | CPT/HCPCS: 76642; 77066 ==

== ENCOUNTER → 2024-01-12 14:38 | Outpatient (REF) | payer MEDICARE, SELFPAY | LOC: HWRAD 14:38 | PROVIDERS: ATTENDING PHYSICIAN Internal Medicine Hematology & Oncology; FAMILY PHYSICIAN Student in an Organized Health Care Education/Training Program | DX: C50.912 Malignant neoplasm of unspecified site of left female breast (principal) | CPT/HCPCS: 74177; Q9967 ==

== ENCOUNTER → 2024-01-25 10:56 | Outpatient (REF) | payer MEDICARE, SELFPAY | LOC: RAD 10:56 | PROVIDERS: ATTENDING PHYSICIAN Internal Medicine Hematology & Oncology; FAMILY PHYSICIAN Student in an Organized Health Care Education/Training Program | DX: C50.912 Malignant neoplasm of unspecified site of left female breast (principal) | CPT/HCPCS: 78306; A9503 ==

== ENCOUNTER → 2024-07-22 12:54 | Outpatient (REF) | payer MEDICARE, OTHER, SELFPAY | LOC: RAD 12:54 | PROVIDERS: ATTENDING PHYSICIAN Internal Medicine Hematology & Oncology; FAMILY PHYSICIAN Student in an Organized Health Care Education/Training Program | DX: C50.912 Malignant neoplasm of unspecified site of left female breast (principal) | CPT/HCPCS: 78306; A9503 ==

== ENCOUNTER → 2024-07-29 14:20 | Outpatient (REF) | payer MEDICARE, SELFPAY | LOC: HWRAD 14:20 | PROVIDERS: ATTENDING PHYSICIAN Internal Medicine Hematology & Oncology; FAMILY PHYSICIAN Student in an Organized Health Care Education/Training Program | DX: C50.912 Malignant neoplasm of unspecified site of left female breast (principal) | CPT/HCPCS: 71260; 74177; Q9967 ==

== ENCOUNTER → 2024-09-24 14:56 | Outpatient (REF) | payer OTHER, SELFPAY | LOC: RAD 14:56 | PROVIDERS: ATTENDING PHYSICIAN Internal Medicine Hematology & Oncology; FAMILY PHYSICIAN Family Medicine | DX: C50.912 Malignant neoplasm of unspecified site of left female breast (principal); Z13.820 Encounter for screening for osteoporosis | CPT/HCPCS: 77080 ==

== ENCOUNTER → 2024-10-01 14:29 | Outpatient (REF) | payer OTHER, SELFPAY ==
[2024-10-01 14:48] LABS: % Basophils 1.2 % (0-2); % Eosinophils 1.2 % (0-6); % Immature Granulocytes 0.3 % (0-0.5); % Lymphocytes 37.9 % (20.5-51.1); % Monocytes 14.3 % (1.7-9.3); % Neutrophils 45.1 % (42.2-75.2); Absolute Lymphocytes 1.3 10^3/uL (1.2-3.4); Absolute Monocytes 0.5 10^3/uL (0.1-0.6); Absolute Neutrophils 1.5 10^3/uL (1.4-6.5); Hematocrit 33.6 % (37.0-47.0); Hemoglobin 11.9 g/dL (12.0-16.0); Mean Corp Hgb Conc. 35.4 g/dL (33.0-37.0); Mean Corpuscular Hgb 32.2 pg (27.0-31.0); Mean Corpuscular Volume 90.8 fL (81.0-99.0); Mean Platelet Volume 8.6 fL (7.4-10.4); Platelet Count 198 10^3/uL (130-400); Red Cell Dist. Width 12.4 % (11.5-14.5); White Blood Cell Count 3.4 10^3/uL (4.8-10.8)
[2024-10-01 16:14] LABS: ALT (SGPT) 16 U/L (0-35); AST (SGOT) 26 U/L (14-36); Albumin 4.4 g/dl (3.5-5.0); Alkaline Phosphatase 88 U/L (38-126); Blood Urea Nitrogen 25 mg/dl (7-17); Calcium 9.7 mg/dl (8.4-10.2); Carbon Dioxide 26 mmol/L (22-30); Chloride 102 mmol/L (98-107); Glucose 113 mg/dl (70-99); Potassium 4.3 mmol/L (3.5-5.1); Sodium 137 mmol/L (135-145); Total Bilirubin 0.3 mg/dl (0.2-1.3); Total Protein 7.2 g/dl (6.3-8.2); eGFR > 60.00
== END ==
LOC: OIDL 14:29
PROVIDERS: ATTENDING PHYSICIAN Internal Medicine Hematology & Oncology
DX: C50.912 Malignant neoplasm of unspecified site of left female breast (principal)
CPT/HCPCS: 36415; 80053; 85025

== ENCOUNTER → 2024-10-28 17:01 | Outpatient (REF) | payer MEDICARE, OTHER, SELFPAY | LOC: MRI 3T 17:01 | PROVIDERS: ATTENDING PHYSICIAN Internal Medicine Hematology & Oncology; PRIMARYCARE PHYSICIAN Family Medicine | DX: C50.912 Malignant neoplasm of unspecified site of left female breast (principal); Z13.820 Encounter for screening for osteoporosis | CPT/HCPCS: 77047; C8937 ==

== ENCOUNTER → 2024-12-03 11:14 | Outpatient (REF) | payer MEDICARE, OTHER, SELFPAY | LOC: WDC 11:14 | PROVIDERS: ATTENDING PHYSICIAN Surgery; FAMILY PHYSICIAN Student in an Organized Health Care Education/Training Program | DX: C50.412 Malignant neoplasm of upper-outer quadrant of left female breast (principal); Z17.0 Estrogen receptor positive status [ER+]; R92.8 Other abnormal and inconclusive findings on diagnostic imaging of breast | CPT/HCPCS: 76642 ==

== ENCOUNTER → 2024-12-13 15:01 | Outpatient (REF) | payer MEDICARE, OTHER, SELFPAY ==
[2024-12-13 15:54] LABS: Hematocrit 34.5 % (37.0-47.0); Hemoglobin 12.2 g/dL (12.0-16.0); Mean Corp Hgb Conc. 35.4 g/dL (33.0-37.0); Mean Corpuscular Hgb 32.4 pg (27.0-31.0); Mean Corpuscular Volume 91.5 fL (81.0-99.0); Mean Platelet Volume 9.2 fL (7.4-10.4); Platelet Count 199 10^3/uL (130-400); Red Blood Cell Count 3.77 10^6/uL (4.20-5.40); Red Cell Dist. Width 12.8 % (11.5-14.5); White Blood Cell Count 3.9 10^3/uL (4.8-10.8)
[2024-12-13 16:30] LABS: % Basophils 2.3 % (0-2); % Eosinophils 1.6 % (0-6); % Lymphocytes 43.2 % (20.5-51.1); % Monocytes 11.9 % (1.7-9.3); Absolute Basophils 0.1 10^3/uL (0-0.2); Absolute Eosinophils 0.1 10^3/uL (0-0.7); Absolute Lymphocytes 1.7 10^3/uL (1.2-3.4); Absolute Monocytes 0.5 10^3/uL (0.1-0.6); Absolute Neutrophils 1.6 10^3/uL (1.4-6.5); Nucleated Red Blood Cells % 0 %
== END ==
LOC: REG 15:01
PROVIDERS: ATTENDING PHYSICIAN Internal Medicine Hematology & Oncology; FAMILY PHYSICIAN Family Medicine
DX: C50.912 Malignant neoplasm of unspecified site of left female breast (principal); Z13.820 Encounter for screening for osteoporosis
CPT/HCPCS: 36415; 85025

== ENCOUNTER 2025-01-08 06:00 | Day surgery (SDC) | payer MEDICARE, OTHER, SELFPAY ==
[2024-12-06 14:05] VITALS: BMI 22.4
[2024-12-06 14:05] LABS: Hematocrit 32.4 % (37.0-47.0); Hemoglobin 11.3 g/dL (12.0-16.0); Mean Corp Hgb Conc. 34.9 g/dL (33.0-37.0); Mean Corpuscular Hgb 32.8 pg (27.0-31.0); Mean Corpuscular Volume 93.9 fL (81.0-99.0); Mean Platelet Volume 10.2 fL (7.4-10.4); Platelet Count 154 10^3/uL (130-400); Red Blood Cell Count 3.45 10^6/uL (4.20-5.40); Red Cell Dist. Width 12.7 % (11.5-14.5); White Blood Cell Count 2.9 10^3/uL (4.8-10.8)
[2024-12-06 14:23] LABS: ALT (SGPT) 19 U/L (0-35); AST (SGOT) 31 U/L (14-36); Albumin 4.5 g/dl (3.5-5.0); Alkaline Phosphatase 95 U/L (38-126); Blood Urea Nitrogen 24 mg/dl (7-17); Calcium 9.7 mg/dl (8.4-10.2); Carbon Dioxide 28 mmol/L (22-30); Chloride 106 mmol/L (98-107); Estimated Creatinine Clearance 50 ml/min; Glucose 117 mg/dl (70-99); Potassium 4.4 mmol/L (3.5-5.1); Sodium 143 mmol/L (135-145); Total Bilirubin 0.6 mg/dl (0.2-1.3); Total Protein 7.2 g/dl (6.3-8.2); eGFR > 60.00
[2024-12-11 17:03] LABS: Prealbumin (Transthyretin) 18.9 mg/dl (17.6-36.0)
[2024-12-11 17:15] LABS: Vitamin D, 25-OH*** 32.9 ng/mL (30-80)
--- NOTE | 2025-01-03 12:55 | PTCARENOTE ---
Patients 12/06 WBC 2.9- Dr. Ramon Carrington Texted and LM @ Dr. Fernando crawford
--- NOTE | 2025-01-06 15:11 | PTCARENOTE ---
Abnormal EKG on 12/06/24. Dr. Morse aware. No interventions needed.
[2025-01-08] VITALS (12 sets, daily range): BP systolic 20–169; BP diastolic 95–104; BMI 22.4
[2025-01-08] MEDS: NORMOSOL-R/PLASMALYTE-A 1000 IV (07:18)
[2025-01-08] MEDS: TYLENOL 1000 MG PO (07:25)
--- NOTE | 2025-01-08 07:29 | W.SUR.PREOP ---
Pre-Operative Surgical Note
-
I have examined this patient prior to the performance of the scheduled procedure.
The patient's condition is unchanged from the time of the current History and
Physical and the patient is able to undergo the scheduled procedure.
I was present on the unit at 0713H,
--- NOTE | 2025-01-08 07:46 | PTCARENOTE ---
Patient very scattered during admission. Patient orginally stated she last had Eliquis on monday01/06/25 and then back tracked and said monday01/05/25 night was her last dose. Dr. Navarro made aware. Orders given by Dr. Navarro for PT/INR and PTT.
Patient also stated she was an ex-smoker and quit first 3 weeks ago and then stated 7 weeks ago. Urine nicotine level ordered on admission, Dr. Galicia was to bring test. Dr. Bowen here and was unable to get test to bring and was made aware of
above.
[2025-01-08 08:09] LABS: INR 0.99; PT 13.6 Sec (11.4-14.6)
[2025-01-08 08:10] LABS: APTT 29.2 Sec (23.4-35.0)
--- NOTE | 2025-01-08 08:13 | W.SUR.PREOP ---
Addendum entered and electronically signed by Angel Galicia MD 01/08/25 08:25:
Addendum to include leukopenia as clinical indication to avoid prosthetic devices. Increased risk of infection.
Original Note:
Pre-Operative Surgical Note
-
I had an extensive conversation with the patient and the patient's daughter this morning regarding options as a relates to her current breast implant status and reconstruction after breast cancer care. We mutually agreed including the patient and
her daughter that less surgery and a shorter recovery was in the best interest of the patient at this time. As such we will delay any reconstructive efforts. The plan was to proceed with bilateral implant removal and capsulectomy. This will
shorten her recovery time, reduce postoperative pain, and avoid the potential complications of tissue expanders.
Data to support this decision include an unknown nicotine status in the setting of prior smoking history. Baseline anemia as per preop labs. Chronic pain in the setting of grade 4 capsular contracture and breast implant status.
The patient and her daughter are both aware of the patient will not have a breast reconstruction at this time. Patient desires to wait until after a 2-year period to ensure there is no recurrence before considering delayed breast reconstruction. I
think this is a very reasonable plan.
Consented accordingly and everything was signed.
--- NOTE | 2025-01-08 09:36 | PTCARENOTE ---
Patients daughter left her phone in [facility] and left the hospital. Patient has her own phone with her as well and was trying to reach patients boyfriend to let him know that her phone was left at the hospital. Dr. Galicia and Dr. Navarro made aware that
patients daughter left her phone in [facility] in case they tried to reach her. Dr. Galicia and Dr. Navarro came back to speak with patient prior to going back to OR to confirm procedures and consent amended per patient request.
[2025-01-08] MEDS: DILAUDID 0.5 MG IV (12:19)
[2025-01-08] MEDS: ROXICODONE 10 MG PO (13:52)
--- NOTE | 2025-01-08 14:58 | W.IMMPOSTOP ---
Surgical Immed Post Op Note
-
Primary Surgeon: YUMIKO Galicia MD
Assisting Surgeon:
Pre-op Diagnosis: Left breast cancer, history of breast implant
Post-op Diagnosis: Same
Procedure Performed: Bilateral breast implant removal, bilateral en bloc capsulectomies
Anesthesia Type: General
Specimen / Cultures: Left and right breast implant capsule
Estimated Blood Loss: 30 cc
Complications: None
Operative Findings: As expected
--- NOTE | 2025-01-08 14:58 | OR.RPT ---
Operative Report
Operative Report
Date of surgery: 01/08/2025
Surgeon: YUMIKO Galicia MD
Preoperative diagnosis: Left breast cancer, history of bilateral breast implants, grade 4 capsular contracture
Postoperative diagnosis: Same
Procedure:
1. Bilateral removal of breast implants
2. Total en bloc capsulectomy
Anesthesia: General
EBL: 30 cc
Complications: None
Specimens: Right and left breast implant and capsule, remainder Per Dr. Navarro
Indication for procedure: Patient is a 64-year-old female with recently diagnosed left-sided breast cancer. She had a significant response on neoadjuvant chemotherapy. She required surgical removal of the breast cancer by Dr. Navarro and was
referred for discussion of options as relates to her breast implants. On exam she had grade 4 capsular contracture that were hard painful and calcified. High likelihood of rupture. She was actively smoking at time of the examination. A
discussion was had about the risks of breast reconstruction including infection, skin flap necrosis, reconstructive failure, asymmetry, and need for repeat procedure. Breast reconstruction is elective in nature and as such not performed in the
setting of active smoking. Delayed reconstruction is available for active smokers once they commit to cessation. Furthermore, her preoperative labs showed anemia, leukopenia and she had a history of chronic pain. In that setting we discussed
bilateral implant removal and capsulectomy. She was amenable to this plan and agreed that after a time of monitoring, which she stated would be approximately 2 years, she may consider delayed reconstruction. I think this is a very reasonable plan
as she may require postoperative radiation therapy, further increasing the likelihood of reconstructive failure infection or implant exposure. Consents were signed accordingly for bilateral implant removal and capsulectomy. It was very clearly
discussed that no reconstruction would take place at todays surgery. This was discussed with both the patient and her daughter.
Procedure in detail:
Patient was identified preoperatively and the surgical site was confirmed to be the bilateral breast. The inframammary folds were marked accordingly. All questions were answered and consents were confirmed. Patient was taken back to the operating
room placed supine on table. Anesthesia was induced the patient was prepped and draped in usual sterile fashion using ChloraPrep solution. Timeout for patient safety was performed is confirmed that preoperative antibiotics have been administered
and bilateral SCDs were in place. Procedure began with Dr. Navarro performing the mastectomies and this will be dictated separately. For my portion of the case, I was able to perform bilateral en bloc capsulectomies with removal of the bilateral
breast implants. This was done via an inframammary fold incision. Meticulous hemostasis was ensured and dilute Marcaine was utilized for pectoralis intercostal blocks. A 15 [place] drain was placed in the potential space and tunneled in the
subcutaneous skin laterally. These were sutured in place with 2-0 Prolene. The wound was then closed in a series of layers with 3-0 Vicryl followed by 3-0 and 4-0 Monocryl. The dressings were placed over the incisions consisting of bacitracin,
dry gauze, Tegaderm. Patient tolerated the procedure well was performed without complication, all counts were correct at the end the case.
--- NOTE | 2025-01-14 09:10 | W.IMMPOSTOP ---
Surgical Immed Post Op Note
-
Primary Surgeon: Ramon
Assisting Surgeon: Ramon
Pre-op Diagnosis: Left breast ca
Post-op Diagnosis: Left breast ca
Procedure Performed: Bilateral mastectomies with left sentinel lymph node mapping and biopsy
Anesthesia Type: LMA
Specimen / Cultures: Bialteral breast capsules, bilateral mastectomies, and sentinel lymph node(s)
Estimated Blood Loss: 50cc
Complications: None
Operative Findings: One sentinel packet with tumor cells
--- NOTE | 2025-01-14 09:17 | OR.RPT ---
Addendum entered and electronically signed by Griselda Navarro MD 01/14/25 15:29:
Procedure performed with curative intent: Yes
Dye used in neoadjuvant setting: Radioactive tracer and blue dye
Dye used in non-neoadjuvant setting: N/A
All lymph nodes at the end dye filled channels removed: yes
All significant radioactive lymph nodes removed: yes
Positive lymph nodes clipped prior to neoadjuvant chemotherapy removed: Yes
Original Note:
Operative Report
Operative Report
Date of Surgery 01/08/25
Pre-Op DX: Left breast carcinoma S/P neoadjuvant chemotherapy
Post-Op DX: Left breast carcinoma S/P neoadjuvant chemotherapy
Surgeon: Ramon
Procedure: bilateral nipple sparing mastectomies and left sentinel lymph node mapping and biospy
The patient is a 64-year-old female who presented with locally advanced left breast carcinoma centered in the left axillary tail and axillary region. She underwent neoadjuvant chemotherapy and had an excellent clinical response. There is no
evidence on imaging that there was any residual tumor or masses. She presents for additionally she had 20-year-old implants with calcified capsular contractures. Plastic surgery will be involved in the case for capsular removal. She is a smoker
and the risk of immediately reconstructing her breast with a tissue banking analyst was too great. On the day prior to the procedure she presented to the [facility] and had technetium radiotracer injection on the left side.
On the morning of surgery she presented to the same-day surgical services. She was prepped and draped. DVT and antibiotic prophylaxis were provided and she was transferred to the operating room. An appropriate timeout procedure was performed by
all staff members.
Both breasts were approached in the same manner. Through an inframammary incision dissection was carried to the chest wall. The implant and firm capsule were elevated off of the pectoralis muscle by Plastic Surgery. Then the implant and capsule
were excised. The implant was removed the capsule was oriented and sent for permanent pathologic analysis. The breast tissue was then released from the anterior skin flap, oriented, and sent for permanent analysis. On the left side technetium
radiotracer had been injected on the day prior to the procedure and 2 cc of methylene blue dye were injected into the breast parenchyma on the left side just prior to beginning the dissection. External massage was applied for 5 minutes. There is
extreme dense treatment reaction in the axillary tail extending into the axilla. Care was taken to stay above the long thoracic and thoracodorsal nerves. 3 sentinel node packets were identified either by tracer signal or visual blue dye. The
third packet seem to contain some residual cancer cells as analyzed on frozen section. Because this patient will be recommended to have postmastectomy radiation patient no additional dissection was performed in the axilla in an attempt to reduce
risk of lymphedema and potential serious harm to the vasculature and/or motor nerves due to the dense scar reaction in this region. Hemostasis was maintained and plastic surgery began with closure and management of the capsules and implants.
([id number])
== END 2025-01-08 14:39 | disposition home or self-care (01) ==
LOC: PACU 06:00
PROVIDERS: ATTENDING PHYSICIAN Surgery Plastic and Reconstructive Surgery; FAMILY PHYSICIAN Family Medicine; OTHER PHYSICIAN Internal Medicine Hematology & Oncology; REFERRING PHYSICIAN Surgery
DX: C50.612 Malignant neoplasm of axillary tail of left female breast (principal); C77.3 Secondary and unspecified malignant neoplasm of axilla and upper limb lymph nodes; T85.44XA Capsular contracture of breast implant, initial encounter; Y83.1 Surgical operation with implant of artificial internal device as the cause of abnormal reaction of the patient, or of later complication, without mention of misadventure at the time of the procedure; Z72.0 Tobacco use; Z98.890 Other specified postprocedural states; Z92.21 Personal history of antineoplastic chemotherapy
CPT/HCPCS: 19303; 38525; 38900; 19370; 88304; 88307; 88332; 36415; 38792; 76942; 80053; 82306; 84134; 85027; 85610; 85730; 88331; 88341; 88342; 93005; A9541; L8000

== ENCOUNTER → 2025-04-22 15:45 | Outpatient (REF) | payer MEDICARE, OTHER, SELFPAY | LOC: HWRAD 15:45 | PROVIDERS: ATTENDING PHYSICIAN Internal Medicine Hematology & Oncology; FAMILY PHYSICIAN Student in an Organized Health Care Education/Training Program | DX: C50.912 Malignant neoplasm of unspecified site of left female breast (principal); Z13.820 Encounter for screening for osteoporosis; R22.1 Localized swelling, mass and lump, neck; M81.0 Age-related osteoporosis without current pathological fracture | CPT/HCPCS: 76536 ==

== ENCOUNTER 2025-05-08 10:46 | Emergency (ER) | payer MEDICARE, OTHER, SELFPAY ==
[2025-05-08 10:51] VITALS: BP 152/88
[2025-05-08 11:15] VITALS: BMI 17.7
--- NOTE | 2025-05-08 11:24 | ED.GENMED ---
History of Present Illness
General
Chief Complaint: Swelling
Source: patient
Exam Limitations: none
Time Seen by Provider: 05/08/25 11:10
History of Present Illness
History of Present Illness:
65-year-old female history of breast cancer, DVT on Eliquis presents with several days worth of swelling and redness to the right lower extremity. She states she has not missed any doses of her Eliquis. She denies chest pain or shortness of
breath. No fevers. No other complaints at this time
Past History
Past History
ED Past Medical History: GERD, Psychiatric (Adderal, ADHD, depression, chronic alcoholic), Other (Anemia ) and Other (chronic back pain)
ED Past Surgical History: Gynecological (Breast implants/exploratory laparotomy ) and Orthopedic (Had back surgery 2007 of my discs were removed and fused.' wrist surgery)
Social History
Tobacco: Former smoker
Alcohol: Daily (Vodka and wine)
Drug: None
Personal:
Living: alone
Employment: Not employed
Family History
Family History: Unable to obtain
Phy Exam
Physical Exam
Physical Exam:
General: Well-appearing female in no acute respiratory distress
HEENT: Normocephalic atraumatic
Heart: Regular rate and rhythm
Lungs: Clear no wheeze
Extremities: Pitting edema right lower extremity mild erythema to the dorsum and lateral of the foot and anterior monroe
Vascular 2+ DP pulse bilateral feet
Neurologic: Good sensation bilateral legs
Scores
Heart Failure Risk
Heart Failure Risk Score: Not Applicable
Course
Orders/Labs/Results
Orders:
Orders
05/08/25 11:23
Venous Doppler Lwr Ext Rt [[facility] Venous LOWER Ext RT] Urgent
Comment:
Reason For Exam: swelling
Vital Signs
Initial and Last Documented VS:
Initial Vital Signs
Temp Pulse Resp BP Pulse Ox
98.5 F 112 18 152/88 98
05/08/25 10:51 05/08/25 10:51 05/08/25 10:51 05/08/25 10:51 05/08/25 10:51
Last Documented Vital Signs
Temp Pulse Resp BP Pulse Ox
98.5 F 112 18 152/88 98
05/08/25 10:51 05/08/25 10:51 05/08/25 10:51 05/08/25 10:51 05/08/25 11:26
MDM/Problems Addressed
Differential Diagnosis Includes:
Swelling right leg. On Eliquis unlikely to be DVT but will check ultrasound. Consider possible cellulitis.
*Pulse Oximetry
SaO2: 98
Patient hypoxic: no
*Critical Care Note
Total Time (30-74mins, 75-104mins- exclusive of procedures): Not Applicable
Update Note
Update Note:
Ultrasound negative for DVT. Patient reassured. Will initiate Keflex for possible early cellulitis. No indication for admission. Stable for discharge
ED Attending Note
-
Portions of this chart may have been created with voice recognition software.� Occasional wrong word or��sound alike� substitutions may have occurred due to the inherent limitations of voice recognition software.
Discharge Plan
Departure
Patient Disposition: Home (Routine Discharge)
Date of Disposition: 05/08/25
Time of Disposition: 12:53
Patient with high blood pressure during this ER visit?: No
Discharge Problem:
Leg swelling
Instructions: Cellulitis (skin infection) in adults (DC)
Prescriptions:
New
cephalexin 500 mg capsule
500 mg PO TID 7 Days Qty: 21 0RF
No Action
lorazepam [Ativan] 0.5 mg Tablet
0.5 mg PO DAILY PRN (Reason: anxiety )
dextroamphetamine-amphetamine [Adderall XR] 30 mg Capsule,Extended Release 24hr
30 mg PO Daily
buprenorphine-naloxone [Suboxone] 8-2 mg Film
1 film sublingual TID
dextroamphetamine-amphetamine 30 mg tablet
30 mg PO BID@1200,1800
Rx Instructions:
First dose is around 12 noon and other dose is in the afternoon
Eliquis 5 mg tablet
5 mg PO BID
Rx Instructions:
Take 10 mg twice daily until 11/27/23; started 11/27 take 5mg twice daily
omeprazole 40 mg Capsule,Delayed Release(Dr/Ec)
40 mg PO DAILY
letrozole 2.5 mg Tablet
2.5 mg PO DAILY
Verzenio 100 mg Tablet
100 mg PO BID
multivitamin Tablet
1 tab PO DAILY
Bria-Parnell 324 mg Tablet, Effervescent
1 ea PO DAILY PRN (Reason: upset stomach)
Laxative
1 dose PO DAILY PRN (Reason: constipation)
Referrals:
Gareth Christian MD [Primary Care Provider, Family Practice]
Activity Restrictions/Additional Instructions:
Elevate for swelling. Use antibiotic as directed peer return if worse otherwise follow-up with your doctor
Interventions
Interventions:
*Risk Screen - Suicide Last Done: 05/08/25 10:51
*General Assessment Last Done: 05/08/25 10:51
*Neglect/Abuse Screening Last Done: 05/08/25 10:51
*ED- Fall Risk Assessment Last Done: 05/08/25 10:51
*ED COVID-19 Vaccine History Last Done: 05/08/25 10:51
ED- Pulmonary Assessment Last Done: 05/08/25 12:01
ED-Skin Assessment Last Done: 05/08/25 11:18
Discharge Date and Time
Print Language: SWEDISH
[2025-05-08 13:08] VITALS: BP 148/77
== END 2025-05-08 13:10 | disposition home or self-care (01) ==
LOC: EMR 10:46
PROVIDERS: EMERGENCY PHYSICIAN Student in an Organized Health Care Education/Training Program; PRIMARYCARE PHYSICIAN Family Medicine
DX: R22.41 Localized swelling, mass and lump, right lower limb (principal); K21.9 Gastro-esophageal reflux disease without esophagitis; F10.20 Alcohol dependence, uncomplicated; F90.9 Attention-deficit hyperactivity disorder, unspecified type; F32.A Depression, unspecified; M54.9 Dorsalgia, unspecified; G89.29 Other chronic pain; Z79.01 Long term (current) use of anticoagulants; Z86.718 Personal history of other venous thrombosis and embolism; Z87.891 Personal history of nicotine dependence; Z85.3 Personal history of malignant neoplasm of breast
CPT/HCPCS: 99284; 93971